=== PATIENT | male | born 1990 | race Caucasian/White ===

== ENCOUNTER 2023-07-24 07:50 | Emergency (ER) | payer BC, SELFPAY ==
[2023-07-24 07:56] VITALS: BP 123/78; PULSE 81; RESP 16; TEMP 36.8; O2SAT 100; BMI 20.5
--- NOTE | 2023-07-24 08:19 | CT_ITS ---
Patient: ZINA NINO Facility:?[facility] Patient ID:?[id number] Site Patient ID:?[id number]. Site :?[id number] Study:?CT-Abdomen/Pelvis W/ISVOUE 370 66CC-07/24/2023 9:40:02 AM Ordering Physician:RUSTY Final Report: INDICATION: Periumbilical and epigastric pain TECHNIQUE: Axial images were obtained from the diaphragm to the pubic symphysis. Reformats were obtained in the coronal and sagittal plane. IV Contrast: 66 cc Isovue 370 Oral Contrast: None COMPARISON: None. FINDINGS: Lower chest: Basilar discoid atelectasis. Liver: Unremarkable. Normal in size and attenuation. No masses. Gallbladder and bile ducts: Unremarkable. No stones or inflammation. No biliary dilatation. Spleen: Unremarkable. Normal in size without mass. Pancreas: Unremarkable. No mass or inflammation. Adrenal glands: Unremarkable. No nodules. Kidneys: Unremarkable. No masses, stones, or hydronephrosis. Vasculature: Unremarkable. GI tract: The stomach is unremarkable. No dilated loops of large or small intestine. Appendix is unremarkable. Moderate amount of stool within the colon. Trace calcification and induration of the fat within the deep pelvis, possibly a remote area of fat necrosis (series 2, image 122). Pelvis: Unremarkable. Bones: Unilateral spondylolysis on the left at L5. Other: Minimal rounded low-density lesion at the subcutaneous tissues of the left anterior abdomen measuring millimeters, question a dermatologic lesion such as a sebaceous cyst. IMPRESSION: 1. No dilated bowel or localized inflammation. 2. Unilateral spondylolysis on the left at L5. Please note that all CT scans at this facility use dose modulation, iterative reconstruction, and/or weight-based dosing when appropriate to reduce radiation dose to as low as reasonably achievable. Dictated by Joseph Longo MD @ 07/24/2023 9:55:01 AM Signed by:?Joseph Longo MD @07/24/2023 9:55:01 AM (Electronic Signature)
--- NOTE | 2023-07-24 08:30 | ED.GENADULT ---
HPI - General Adult General Date Seen: 07/24/23 Chief complaint: Unspecified Complaint, Adult Stated complaint: high BP / cant swallow Time Seen by Provider: 07/24/23 08:05 Source: patient Mode of arrival: ambulatory Limitations: no limitations History of Present Illness HPI narrative: Patient is a 33-year-old male presenting to the emergency department for multiple complaints. His main complaint is he feels something stuck in his esophagus. This has been going on since yesterday afternoon. He has been able the tolerate oral intake since then. Both solids and liquids. Has never had issues like this before. States the symptoms started randomly while he was at work. Was not eating anything at that time. Is also complaining about nausea. Feels like he has to vomit but has not had any vomiting yet. Is concerned because he has had a bowel movement in 4 days and states usually goes every day. Denies any previous abdominal surgeries. Denies fevers, chills, chest pain, shortness of breath, weakness, numbness, headache, vision changes. Denies having issues with constipation before. Says the pain is periumbilical and epigastric in nature. Does not aware of any sick contacts. Related Data Home Medications Medication Instructions Recorded Confirmed Levemir FlexPen 07/24/23 Novolog FlexPen U-100 Insulin 07/24/23 doxycycline hyclate 07/24/23 levothyroxine 07/24/23 Allergies Allergy/AdvReac Type Severity Reaction Status Date / Time sulfamethoxazole Allergy Intermediate Verified 07/24/23 08:10 [From Bactrim] tramadol Allergy Intermediate Verified 07/24/23 08:10 trimethoprim [From Bactrim] Allergy Intermediate Verified 07/24/23 08:10 Review of Systems Status of ROS: Reports: 10 or more systems reviewed and unremarkable except as noted in History and below PFSH PFS Social History Smoking Status: Current every day smoker How often do you have a drink containing alcohol: never AUDIT-C Alcohol total score: 0 Non-prescribed substance use: denies use Exam Narrative: Exam Narrative: Const: Well-nourished, Well-developed, in mild distress Eyes: PERRL, no conjunctival injection, and symmetrical lids HENT: Atraumatic external nose and ears. Moist mucous membranes. Neck: Symmetric, trachea midline, No thyromegaly. CVS: RRR, No murmurs or gallops. Peripheral pulses 2+ and equal in all extremities RESP: Unlabored respiratory effort. Clear to auscultation bilaterally. GI: Nontender/Nondistended, No rebound or guarding. MSK:Extremities w/o deformity, Normal Active ROM Skin: Warm, Dry. No rashes or lesions. Neuro: Normal Muscle tone, No focal neurological deficits. Psych: Awake, Alert, & Oriented x3. Appropriate mood and affect. Const: Vital Signs, click to edit/add: Vital Signs - 24 hr 07/24/23 07:56 07/24/23 08:41 Temperature 98.3 F Pulse Rate [Pulse Oximeter] 81 Respiratory Rate 16 Respiratory Rate [ Abdomen] 14 Blood Pressure [Ri ght Upper Arm] 123/78 Pulse Oximetry 100 Oxygen Delivery Me thod Room Air Course Vital Signs Vital signs: Initial Vital Signs Temperature 98.3 F 07/24/23 07:56 Temperature Source Temporal Artery Scan 07/24/23 07:56 Pulse Rate 81 07/24/23 07:56 Respiratory Rate 16 07/24/23 07:56 Blood Pressure 123/78 07/24/23 07:56 Blood Pressure Mean 93 07/24/23 07:56 Pulse Oximetry 100 07/24/23 07:56 Oxygen Delivery Method Room Air 07/24/23 07:56 Vital Signs Temperature 98.3 F 07/24/23 07:56 Pulse Rate 81 07/24/23 07:56 Respiratory Rate 16 07/24/23 07:56 Blood Pressure 123/78 07/24/23 07:56 Pulse Oximetry 100 07/24/23 07:56 Oxygen Delivery Method Room Air 07/24/23 07:56 Temperature 98.3 F 07/24/23 07:56 Pulse Rate 81 07/24/23 07:56 Respiratory Rate 14 07/24/23 08:41 Blood Pressure 123/78 07/24/23 07:56 Pulse Oximetry 100 07/24/23 07:56 Oxygen Delivery Method Room Air 07/24/23 07:56 Medications Administered Medications: Discontinued Medications Generic Name Dose Route Start Last Admin Trade Name Freq PRN Reason Stop Dose Admin Ondansetron HCl 4 mg 07/24/23 08:19 07/24/23 08:36 Ondansetron 2 Mg/Ml Inj IVP 07/24/23 08:20 4 mg ONCE ONE Administration Medical Decision Making MDM Narrative Medical decision making narrative: Patient is a 33-year-old male presenting for multiple complaints. While he is concerned there is something stuck in his esophagus considering knee is tolerating both solid and liquids at this time this seems very unlikely. Most likely he had some kind of abrasion causing a foreign body sensation in his throat. He is having abdominal pain though and will do CT scan of his abdomen pelvis to better evaluate this. Will also order CBC, CMP, lipase, COVID/flu/RSV. Zofran given for nausea. Patient is feeling better after the Zofran. Lab work returned showing no concerning abnormalities. COVID/flu/RSV is negative. No signs of pancreatitis. CT scan returned showing no concerning findings. There is a moderate amount of stool in his colon. Unsure exactly was causing his symptoms. Could be viral syndrome verses the constipation. I will give him information for bowel cleanout regimen. He is agreeable to this plan. Will also discharge him home on Zofran. Lab Data Labs: Lab Results 07/24/23 Range/Units 08:32 WBC 7.96 (4.50-11.00) K/uL RBC 4.50 (4.30-5.90) m/uL Hgb 13.4 L (13.5-17.5) gm/dL Hct 39.5 (37.0-53.0) % MCV 88 (80-100) fL MCH 30 (26-34) pg MCHC 34 (32-36) gm/dL RDW Coeff of Anny 13.2 (11.5-15.5) % Plt Count 151 (140-440) K/uL Neut % (Auto) 84.1 H (42.0-72.0) % Lymph % (Auto) 7.5 L (20-44) % [place] % (Auto) 6.9 (0.0-11.0) % Eos % (Auto) 1.1 (0.0-7.0) % Baso % (Auto) 0.3 (0.0-3.0) % Neut # (Auto) 6.70 (1.7-7.0) K/uL Lymph # (Auto) 0.60 L (0.90-2.90) K/uL [place] # (Auto) 0.50 (0.00-0.90) K/UL Eos # (Auto) 0.09 (0.00-0.50) K/uL Baso # (Auto) 0.02 (0.00-0.30) K/uL Abs Immat Gran (auto) 0.01 (0.00-0.30) K/uL Imm/Tot Granulo (auto) 0.1 % Sodium 138 (135-149) mmol/L Potassium 4.0 (3.6-5.1) mmol/L Chloride 105 (96-114) mmol/L Carbon Dioxide 27 (20-32) mmol/L Anion Gap 6 L (7-15) mEq/L BUN 5 (5-24) mg/dL Creatinine 0.8 (0.5-1.5) mg/dL Estimated Creat Clear 112.69 Estimated GFR 119 ml/min Glucose 128 H (60-115) mg/dL Calcium 8.8 (8.4-10.6) mg/dL Total Bilirubin 1.2 (0.1-1.5) mg/dL AST 36 H (12-35) U/L ALT 22 (4-50) U/L Alkaline Phosphatase 60 (40-150) U/L Total Protein 7.2 (6.0-8.3) g/dL Albumin 4.4 (3.3-5.0) g/dL Lipase 28 (23-300) U/L SARS-CoV-2 (PCR) Negative SARS-CoV-2 (Negative) Influenza Type A (PCR) Negative PCR FLU A (Negative) Influenza Type B (PCR) Negative PCR FLU B (Negative) RSV (PCR) Negative PCR RSV (Negative) Imaging Data CT scan abdomen and pelvis: Attestation: I have reviewed the pertinent imaging results. Radiologist's impression: 1. No dilated bowel or localized inflammation. 2. Unilateral spondylolysis on the left at L5. Please note that all CT scans at this facility use dose modulation, iterative reconstruction, and/or weight-based dosing when appropriate to reduce radiation dose to as low as reasonably achievable. Dictated by Joseph Longo MD @ 07/24/2023 9:55:01 AM Discharge Plan Discharge Clinical Impression: Abdominal pain Qualifiers: Abdominal location: unspecified location Qualified Code(s): R10.9 - Unspecified abdominal pain Patient Disposition: Home, Self-Care Condition: Improved Instructions: Constipation (DC) Additional Instructions: Take Zofran as needed for nausea. You can try using home stool softeners to have a bowel movement. If that does not help in try the bowel cleanout regimen provided. ?2 - Bisacodyl tablets (Dulcolax? laxative NOT Dulcolax? stool softener) each tablet contains 5 mg of bisacodyl ?1 - 8.3 ounce bottle of Polyethylene Glycol (PEG) 3350 Powder (MiraLAX, SmoothLAX, ClearLAX or generic equivalent) 64 oz. Gatorade? (No red colored flavors) Regular Gatorade?, Gatorade G2?, Powerade?, Powerade Zero?, Pedialyte or Propel?, Liquid IV, and other electrolyte beverages are acceptable. Red flavors are not allowed; all other colors (yellow, green, orange, purple, blue) are okay. It is also okay to buy two 2.12 oz packets of powdered Gatorade that can be mixed with water to a total volume of 64 oz of liquid. ?1 - 10 oz. bottle Magnesium Citrate (No red colored flavors) It is also okay for you to use a 0.5 ounce package of powdered magnesium citrate (17 grams) mixed with 10 ounces of water. ?Tomorrow begin Clear Liquid Diet (clear liquids include things you can see through). Examples of a clear liquid diet include: water, clear broth or bouillon (gluten free options available), Gatorade, Pedialyte or Powerade, carbonated and non-carbonated soft drinks (Sprite, 7-Up, Gingerale), strained fruit juices without pulp (apple, white grape, white cranberry), Jell-O, popsicles, and up to one cup of black coffee or tea (no milk or cream) each day. The following are not allowed on a clear liquid diet: red liquids, alcoholic beverages, dairy products, protein shakes, cream broths, juice with pulp, products containing oil and chewing tobacco. For additional details on following a clear liquid diet, please see [email or web address] ?Take 2 Bisacodyl (Dulcolax) tablets ?4-6 hour later Drink Miralax ? Gatorade preparation Mix 1 bottle of Miralax with 64 oz. of Gatorade in a large pitcher. Drink 1 - 8 oz. glass of the Miralax/Gatorade solution. Continue drinking 1 - 8 oz. glass every 15 minutes thereafter until the mixture is gone Prescriptions: No Action levothyroxine doxycycline hyclate Novolog FlexPen U-100 Insulin Levemir FlexPen Follow Up/Referrals: Provider,Not a Local [Primary Care Provider] - Stand Alone Forms: [employer] Info Instructions
[2023-07-24] MEDS: ONDANSETRON 2 MG/ML inj 4 MG IVP (08:36)
[2023-07-24 08:41] VITALS: RESP 14
[2023-07-24 08:54] LABS: Basophils Absolute Auto 0.02 K/uL (0.00-0.30); Basophils Percent Auto 0.3 % (0.0-3.0); Eosinophils Absolute Auto 0.09 K/uL (0.00-0.50); Eosinophils Percent Auto 1.1 % (0.0-7.0); Hematocrit 39.5 % (37.0-53.0); Hemoglobin* 13.4 gm/dL (13.5-17.5); Immature Granulocytes Abs Auto 0.01 K/uL (0.00-0.30); Immature Granulocytes Pct Auto 0.1 %; Lymphocytes Percent Auto 7.5 % (20-44); Mean Corpuscular HGB Conc 34 gm/dL (32-36); Mean Corpuscular Hemoglobin 30 pg (26-34); Mean Corpuscular Volume 88 fL (80-100); Monocytes Percent Auto 6.9 % (0.0-11.0); Neutrophils Percent Auto 84.1 % (42.0-72.0); Platelet Count* 151 K/uL (140-440); RDW Coefficient of Variation % 13.2 % (11.5-15.5); White Blood Count* 7.96 K/uL (4.50-11.00)
[2023-07-24 08:55] LABS: Slide Review Reflex No
[2023-07-24 09:05] LABS: Albumin* 4.4 g/dL (3.3-5.0)
[2023-07-24 09:06] LABS: Chloride* 105 mmol/L (96-114); Sodium* 138 mmol/L (135-149)
[2023-07-24 09:08] LABS: Anion Gap 6 mEq/L (7-15); Aspartate Amino Transferase* 36 U/L (12-35); Bilirubin Total* 1.2 mg/dL (0.1-1.5); Carbon Dioxide* 27 mmol/L (20-32); Creatinine* 0.8 mg/dL (0.5-1.5); Est. Creatinine Clearance* 112.69; Estimated Glomerular Filt Rate 119 ml/min; Total Protein* 7.2 g/dL (6.0-8.3)
[2023-07-24 09:09] LABS: Alanine Aminotransferase* 22 U/L (4-50); Alkaline Phosphatase* 60 U/L (40-150); Blood Urea Nitrogen* 5 mg/dL (5-24); Calcium* 8.8 mg/dL (8.4-10.6); Glucose* 128 mg/dL (60-115); Lipase* 28 U/L (23-300)
[2023-07-24 09:28] LABS: PCR FLU A Negative PCR FLU A (Negative); PCR FLU B Negative PCR FLU B (Negative); PCR RSV Negative PCR RSV (Negative); SARS PCR* Negative SARS-CoV-2 (Negative)
[2023-07-24 09:30] VITALS: BP 120/73; PULSE 68; RESP 14; O2SAT 98
[2023-07-24 10:45] VITALS: BP 114/68; PULSE 70; RESP 16; TEMP 36.8
== END 2023-07-24 10:46 | disposition home or self-care (01) ==
PROVIDERS: Emergency Provider Student in an Organized Health Care Education/Training Program
DX: R10.9 Unspecified abdominal pain (principal)
CPT/HCPCS: 36415; 74177; 80053; 83690; 85025; 87631; 96374; 99283; 99284; 99285; J2405; Q9967